=== PATIENT | male | born 1960 | race Caucasian/White ===

== ENCOUNTER 2017-04-24 11:03 | Emergency (ER) | payer OTHER ==
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
--- NOTE | 2017-04-24 13:27 | RADIOLOGY REPORT ---
Three views of the right shoulder demonstrate no displaced fracture or dislocation. The visualized joints appear unremarkable. IMPRESSION: No displaced injury. If clinically indicated, further evaluation and/or follow-up may be of benefit. MTDD
== END 2017-04-24 12:06 | disposition home or self-care (01) ==
LOC: ER 11:03
DX: S40.011A Contusion of right shoulder, initial encounter (principal); V18.0XXA Pedal cycle driver injured in noncollision transport accident in nontraffic accident, initial encounter; Y92.838 Other recreation area as the place of occurrence of the external cause; Y93.55 Activity, bike riding
CPT/HCPCS: 99283